=== PATIENT | male | born 1975 | race Caucasian/White ===

== ENCOUNTER 2024-08-13 10:00 | Inpatient (IN) | payer OTHER ==
[2024-08-13 10:37] VITALS: BMI 27.2
[2024-08-13] MEDS ORDERED: diazePAM 5 MG TABLET PO PRN (10:52)
[2024-08-13] MEDS ORDERED: guaiFENesin 600 MG TABLET.ER (FP) PO PRN (10:52)
[2024-08-13] MEDS ORDERED: BENZONATATE 200 MG CAPSULE PO PRN (10:52)
[2024-08-13] MEDS ORDERED: NICOTINE POLACRILEX 2 MG GUM BUC PRN (10:52)
[2024-08-13] MEDS ORDERED: BUPRENORPHINE HCL 150 MCG, BUPRENORPHINE HCL 75 MCG BC PRN (10:52)
[2024-08-13] MEDS ORDERED: BENZOCAINE/MENTHOL (CHLORASEPTIC ) LOZENGE MM PRN (10:52)
[2024-08-13] MEDS ORDERED: MAGNESIUM HYDROX 2400MG/30ML ORAL SUSPENSION 30 ML CUP PO PRN (10:52)
[2024-08-13] MEDS ORDERED: NALOXONE (NARCAN) HCL 4 MG/0.1 ML SPRAY NS PRN (10:52)
[2024-08-13] MEDS ORDERED: POLYETHYLENE GLYCOL (HEALTHYLAX) 3350 17 GM PACKET PO PRN (10:52)
[2024-08-13] MEDS ORDERED: DICYCLOMINE HCL 10 MG CAPSULE PO PRN (10:52)
[2024-08-13] MEDS ORDERED: NICOTINE POLACRILEX 2 MG LOZENGE BC PRN (10:52)
[2024-08-13] MEDS ORDERED: BISMUTH SUBSALICYLATE 524 MG/30 ML PO PRN (10:52)
[2024-08-13] MEDS ORDERED: ONDANSETRON *ODT* 4 MG TABLET SL PRN (10:52)
[2024-08-13] MEDS ORDERED: diazePAM 5 MG TABLET ONE (12:31)
[2024-08-13] MEDS ORDERED: BUPRENORPHINE HCL 150 MCG FILM BC ONE (12:32)
[2024-08-13] MEDS ORDERED: BUPRENORPHINE HCL 75 MCG FILM BC ONE (12:32)
[2024-08-13] MEDS ORDERED: cloNIDine HCL 0.1 MG TABLET ONE (12:33)
[2024-08-13] MEDS: BUPRENORPHINE HCL 150 MCG, BUPRENORPHINE HCL 75 MCG BC ONE (12:36)
[2024-08-13] MEDS: diazePAM 5 MG TABLET PO SCH (12:37)
[2024-08-13] MEDS: cloNIDine HCL 0.1 MG TABLET PO ONE (12:37)
[2024-08-13] MEDS: diazePAM 5 MG TABLET PO PRN (15:55)
[2024-08-13] MEDS: DARUNAVIR/COB/EMTRI/TENOF ALAF 1 EACH TABLET PO SCH (15:59)
[2024-08-13] MEDS: METHOCARBAMOL 500 MG TABLET PO PRN (17:34)
[2024-08-13] MEDS: cloNIDine HCL 0.1 MG TABLET PO PRN (17:35)
[2024-08-13] MEDS: MELATONIN 5 MG TABLETS PO SCH (22:24)
[2024-08-13] MEDS: THIAMINE 100 MG TABLET PO SCH (22:24)
[2024-08-13] MEDS: MIRTAZAPINE 15 MG TABLET (FP) PO SCH (22:24)
[2024-08-14] MEDS ORDERED: BUPRENORPHINE HCL 150 MCG, BUPRENORPHINE HCL 75 MCG BC PRN
[2024-08-14] MEDS: hydrOXYzine PAMOATE 25 MG CAPSULE (FP) PO PRN (00:56)
[2024-08-14] MEDS: IBUPROFEN 400 MG TABLET (FP) PO PRN (00:57)
[2024-08-14] MEDS: BUPRENORPHINE HCL 150 MCG, BUPRENORPHINE HCL 75 MCG BC SCH (05:34)
[2024-08-14] MEDS ORDERED: ALBUTEROL SO4 HFA INHALER IH PRN (07:39)
[2024-08-14] MEDS: PRENATAL VITAMINS W/ FOLIC ACID TABLET (FP) PO SCH (09:57)
[2024-08-14] MEDS: NICOTINE 21 MG/24 HOURS TOPICAL PATCH TD SCH (09:57)
[2024-08-14 11:31] LABS: POTASSIUM 4.1 mmol/L (3.5-5.1)
[2024-08-14 11:37] LABS: HEMATOCRIT 36.2 % (35.4-49); HEMOGLOBIN 12.1 GM/dL (11.7-16.9); MCH 26.9 pg (25.7-33.7); MCHC 33.5 g/dl (32.0-35.9); MEAN CELL VOLUME 80.3 fl (80-96); MEAN PLT VOLUME 8.6 fl (7.5-11.1); PLATELET COUNT 119 10^3/uL (134-434); RBC 4.51 M/mm3 (4.00-5.60); RDW 15.1 % (11.9-15.9)
[2024-08-14 11:46] LABS: CALCIUM 9.1 mg/dL (8.5-10.1)
[2024-08-14 11:47] LABS: ALBUMIN 3.2 g/dl (3.4-5.0); BLOOD UREA NITROGEN 13.8 mg/dL (7-18); WHITE BLOOD COUNT 1.6 K/mm3 (4.0-10.0)
[2024-08-14 11:50] LABS: CREATININE 0.8 mg/dL (0.55-1.3)
[2024-08-14 11:51] LABS: BILIRUBIN,TOTAL 0.6 mg/dL (0.2-1); TOT PROT 6.9 g/dl (6.4-8.2)
[2024-08-14] MEDS: LOPERAMIDE HCL 2 MG CAPSULE PO PRN (15:12)
[2024-08-14] MEDS: ACETAMINOPHEN 325 MG TABLET (FP) PO PRN (15:12)
[2024-08-14] MEDS: IBUPROFEN 600 MG TABLET (FP) PO PRN (23:32)
[2024-08-15] MEDS: BUPRENORPHINE HCL 450 MCG FILM BC SCH (05:20)
[2024-08-15] MEDS: diazePAM 5 MG TABLET PO SCH (05:20)
[2024-08-15] MEDS: MAG HYDROX/AL HYDROX/SIMETH 30 ML UNIT-DOSE CUP PO PRN (09:56)
[2024-08-16] MEDS: BUPRENORPHINE/NALOXONE 4 MG/1 MG FILM PACKET SL SCH (05:55)
[2024-08-16] MEDS: diazePAM 5 MG TABLET PO SCH (05:55)
[2024-08-17] MEDS: BUPRENORPHINE/NALOXONE 8 MG/2 MG FILM PACKET SL ONE (06:01)
[2024-08-17] MEDS: diazePAM 5 MG TABLET PO ONE (06:01)
[2024-08-17 08:52] VITALS: BP 136/85; PULSE 79; RESP 16; TEMP 97.3
[2024-08-17] MEDS: NALOXONE (NYS OPIOID OVERDOSE PROGRAM) 4 MG/0.1 ML SPRAY NS SCH (10:52)
== END 2024-08-17 10:45 | disposition other institution (70) | DRG 773 ==
LOC: YASAS 10:00 → Y3N 12:31
PROVIDERS: ADMIT Allergy & Immunology; ATTEND Allergy & Immunology
PROC: HZ2ZZZZ Detoxification Services for Substance Abuse Treatment (ICD-10-PCS; principal; 2024-08-13)
DX: F11.23 Opioid dependence with withdrawal (principal); F10.230 Alcohol dependence with withdrawal, uncomplicated; F14.20 Cocaine dependence, uncomplicated; F17.210 Nicotine dependence, cigarettes, uncomplicated; F31.9 Bipolar disorder, unspecified; F41.9 Anxiety disorder, unspecified; Z21 Asymptomatic human immunodeficiency virus [HIV] infection status; Z86.19 Personal history of other infectious and parasitic diseases; Z88.8 Allergy status to other drugs, medicaments and biological substances; Z79.899 Other long term (current) drug therapy
CPT/HCPCS: 36415; 80053; 80305; 80307; 85027; 86359; 86360; 86780; 93005; 93010

== ENCOUNTER 2025-01-12 14:37 | Inpatient (IN) | payer OTHER ==
[2025-01-12 14:56] VITALS: BMI 28.3
[2025-01-12] MEDS ORDERED: DICYCLOMINE HCL 10 MG CAPSULE PO PRN (15:18)
[2025-01-12] MEDS ORDERED: BENZONATATE 200 MG CAPSULE PO PRN (15:18)
[2025-01-12] MEDS ORDERED: ONDANSETRON *ODT* 4 MG TABLET SL PRN (15:18)
[2025-01-12] MEDS ORDERED: LOPERAMIDE HCL 2 MG CAPSULE PO PRN (15:18)
[2025-01-12] MEDS ORDERED: IBUPROFEN 400 MG TABLET (FP) PO PRN (15:18)
[2025-01-12] MEDS ORDERED: NALOXONE (NARCAN) HCL 4 MG/0.1 ML SPRAY NS PRN (15:18)
[2025-01-12] MEDS ORDERED: BISMUTH SUBSALICYLATE 524 MG/30 ML PO PRN (15:18)
[2025-01-12] MEDS ORDERED: MAGNESIUM HYDROX 2400MG/30ML ORAL SUSPENSION 30 ML CUP PO PRN (15:18)
[2025-01-12] MEDS ORDERED: P-EPHED 60MG/TRIPROLIDI 2.5MG TABLET PO PRN (15:18)
[2025-01-12] MEDS ORDERED: NICOTINE POLACRILEX 2 MG GUM BUC PRN (15:18)
[2025-01-12] MEDS ORDERED: guaiFENesin 600 MG TABLET.ER (FP) PO PRN (15:18)
[2025-01-12] MEDS ORDERED: NICOTINE POLACRILEX 2 MG LOZENGE BC PRN (15:18)
[2025-01-12] MEDS ORDERED: POLYETHYLENE GLYCOL (HEALTHYLAX) 3350 17 GM PACKET PO PRN (15:18)
[2025-01-12] MEDS ORDERED: BENZOCAINE/MENTHOL (CHLORASEPTIC ) LOZENGE MM PRN (15:18)
[2025-01-12] MEDS ORDERED: ACETAMINOPHEN 325 MG TABLET (FP) PO PRN (15:18)
[2025-01-12] MEDS ORDERED: methaDONE HCL 10 MG TABLET (FOR DETOX USE ONLY) ONE (15:36)
[2025-01-12] MEDS: methaDONE HCL 10 MG TABLET (FOR DETOX USE ONLY) PO ONE (15:39)
[2025-01-12] MEDS: diazePAM 5 MG TABLET PO ONE (15:57)
[2025-01-12] MEDS: METHOCARBAMOL 500 MG TABLET PO PRN (18:48)
[2025-01-12] MEDS: cloNIDine HCL 0.1 MG TABLET PO PRN (18:51)
[2025-01-12] MEDS: DARUNAVIR/COB/EMTRI/TENOF ALAF 1 EACH TABLET PO SCH ×2 (19:55→22:42)
[2025-01-12] MEDS: MELATONIN 5 MG TABLETS PO SCH (22:45)
[2025-01-12] MEDS: THIAMINE 100 MG TABLET PO SCH (22:45)
[2025-01-12] MEDS: diazePAM 5 MG TABLET PO PRN (22:47)
[2025-01-13 09:21] LABS: HEMATOCRIT 34.1 % (40.1-51.0); HEMOGLOBIN 11.1 g/dL (13.7-17.5); MCHC 32.6 g/dl (32.3-36.5); MEAN CELL VOLUME 80.6 fl (79.0-92.2); MEAN PLT VOLUME 10.2 fl (9.4-12.4); PLATELET COUNT 105 x10^3/uL (163-337); RDW 13.8 % (12.1-15.9)
[2025-01-13 09:59] LABS: CHLORIDE 106 mmol/L (98-107); POTASSIUM 3.4 mmol/L (3.5-5.1); SODIUM 141 mmol/L (136-145)
[2025-01-13] MEDS ORDERED: PATIENT'S OWN MEDICATION (NON-FORMULARY) (Darunavir/Cob/Emtri/Tenof Alaf 1 EACH Tablet) PO SCH (10:00)
[2025-01-13 10:01] LABS: ANION GAP 7 mmol/L (4-13); CO2 28 mmol/L (21-32); GLUCOSE,RANDOM 95 mg/dL (74-106)
[2025-01-13 10:02] LABS: ALBUMIN 2.8 g/dl (3.4-5.0); BLOOD UREA NITROGEN 12.9 mg/dL (7-18)
[2025-01-13 10:04] LABS: CREATININE 0.8 mg/dL (0.55-1.3)
[2025-01-13 10:05] LABS: SGOT/AST 19 U/L (15-37); SGPT/ALT 21 U/L (13-61)
[2025-01-13 10:06] LABS: BILIRUBIN,TOTAL 0.3 mg/dL (0.2-1)
[2025-01-13 10:07] LABS: ALK PHOS 106 U/L (45-117)
[2025-01-13] MEDS: PRENATAL VITAMINS W/ FOLIC ACID TABLET (FP) PO SCH (10:09)
[2025-01-13] MEDS: methaDONE HCL 10 MG TABLET (FOR DETOX USE ONLY) PO ONE (10:10)
[2025-01-13] MEDS: BUPRENORPHINE/NALOXONE 0.5 MG/0.125 MG FILM SL SCH (10:10)
[2025-01-13] MEDS: POTASSIUM CHLORIDE ORAL LIQUID 20 MEQ/15 ML PO ONE (14:35)
[2025-01-13] MEDS: MIRTAZAPINE 15 MG TABLET (FP) PO SCH (22:35)
[2025-01-14] MEDS ORDERED: BUPRENORPHINE/NALOXONE 2 MG/0.5 MG FILM PACKET SL SCH (10:00)
[2025-01-14] MEDS: IBUPROFEN 600 MG TABLET (FP) PO PRN (19:54)
[2025-01-15] MEDS: methaDONE HCL 10 MG TABLET (FOR DETOX USE ONLY) PO ONE (09:32)
[2025-01-15] MEDS ORDERED: BUPRENORPHINE/NALOXONE 4 MG/1 MG FILM PACKET SL SCH (10:00)
[2025-01-16] MEDS ORDERED: BUPRENORPHINE/NALOXONE 8 MG/2 MG FILM PACKET SL SCH (10:00)
[2025-01-16] MEDS: MAG HYDROX/AL HYDROX/SIMETH 30 ML UNIT-DOSE CUP PO PRN (11:37)
[2025-01-17 06:43] VITALS: RESP 16
[2025-01-17] MEDS: methaDONE HCL 10 MG TABLET (FOR DETOX USE ONLY) PO ONE (09:36)
[2025-01-17] MEDS: BUPRENORPHINE/NALOXONE 4 MG/1 MG FILM PACKET SL SCH (09:51)
[2025-01-17] MEDS ORDERED: BUPRENORPHINE/NALOXONE 8 MG/2 MG FILM PACKET SL SCH (10:00)
[2025-01-17] MEDS: hydrOXYzine PAMOATE 50 MG CAPSULE (FP) PO PRN (11:41)
[2025-01-17] MEDS: cloNIDine HCL 0.1 MG TABLET PO ONE (12:54)
[2025-01-17 13:00] VITALS: BP 136/90; PULSE 70; TEMP 98.2
[2025-01-17] MEDS: cloNIDine HCL 0.1 MG TABLET PO SCH (13:31)
[2025-01-18] MEDS ORDERED: BUPRENORPHINE/NALOXONE 8 MG/2 MG FILM PACKET SL SCH (10:00)
== END 2025-01-17 14:24 | disposition home or self-care (01) | DRG 773 ==
LOC: YASAS 14:37 → Y6N 15:35
PROVIDERS: ADMIT Neuromusculoskeletal Medicine & OMM; ATTEND Family Medicine
PROC: HZ2ZZZZ Detoxification Services for Substance Abuse Treatment (ICD-10-PCS; principal; 2025-01-13)
DX: F11.23 Opioid dependence with withdrawal (principal); F10.20 Alcohol dependence, uncomplicated; F14.20 Cocaine dependence, uncomplicated; F15.10 Other stimulant abuse, uncomplicated; F17.210 Nicotine dependence, cigarettes, uncomplicated; F19.282 Other psychoactive substance dependence with psychoactive substance-induced sleep disorder; F31.9 Bipolar disorder, unspecified; Z21 Asymptomatic human immunodeficiency virus [HIV] infection status; D72.819 Decreased white blood cell count, unspecified; E87.6 Hypokalemia; Z79.899 Other long term (current) drug therapy; Z59.01 Sheltered homelessness; Z88.8 Allergy status to other drugs, medicaments and biological substances
CPT/HCPCS: 36415; 80053; 80305; 80307; 84132; 85027

== ENCOUNTER 2025-01-14 12:03 | Emergency (ER) | payer OTHER ==
[2025-01-14 12:17] VITALS: RESP 18; BMI 27.1
[2025-01-14 12:24] VITALS: TEMP 97.8
[2025-01-14 13:43] LABS: HEMATOCRIT 46.6 % (40.1-51.0); MCHC 32.2 g/dl (32.3-36.5); MEAN CELL VOLUME 82.5 fl (79.0-92.2); PLATELET COUNT 141 x10^3/uL (163-337)
[2025-01-14 14:01] LABS: POTASSIUM 4.3 mmol/L (3.5-5.1)
[2025-01-14 14:04] LABS: BLOOD UREA NITROGEN 16.5 mg/dL (7-18); CALCIUM 9.4 mg/dL (8.5-10.1); MAGNESIUM 2.1 mg/dL (1.8-2.4)
[2025-01-14] MEDS ORDERED: ACETAMINOPHEN INJECTION 100 ML ONE (14:06)
[2025-01-14] MEDS ORDERED: FAMOTIDINE 20 MG/50 ML IVPB 20 MG/50 ML MG IVPB ONE (14:06)
[2025-01-14 14:07] LABS: CREATININE 0.9 mg/dL (0.55-1.3)
[2025-01-14 14:09] LABS: ALBUMIN 3.5 g/dl (3.4-5.0); BILIRUBIN,TOTAL 0.4 mg/dL (0.2-1); TOT PROT 7.9 g/dl (6.4-8.2)
[2025-01-14] MEDS: FAMOTIDINE 20 MG/50 ML IVPB 20 MG/50 ML MG IVPB ONE (14:13)
[2025-01-14] MEDS: LACTATED RINGERS SOLUTION 1000 ML INFUS.BAG IV ONE (14:13)
[2025-01-14] MEDS: ACETAMINOPHEN 1000 MG/100 ML BAG IVPB ONE (14:13)
[2025-01-14 14:50] LABS: ABSOLUTE IMMATURE GRANULOCYTES 0.03 x10^3/uL (0.0-0.031); BASOPHILS # 0.01 x10^3/uL (0.01-0.08); EOSINOPHIL % 0.5 % (0.8-7.0); EOSINOPHILS # 0.02 x10^3/uL (0.04-0.54); HEMATOCRIT 41.1 % (40.1-51.0); HEMOGLOBIN 13.1 g/dL (13.7-17.5); MCHC 31.9 g/dl (32.3-36.5); MEAN CELL VOLUME 82.5 fl (79.0-92.2); MEAN PLT VOLUME 9.4 fl (9.4-12.4); MONOCYTE % 4.8 % (5.3-12.2); PLATELET COUNT 121 x10^3/uL (163-337); RDW 13.9 % (12.1-15.9)
[2025-01-14 14:51] LABS: PH,URINE 5.5 (5.0-8.0); URINE APPEARANCE CLEAR; URINE BILIRUBIN NEGATIVE (NEGATIVE); URINE COLOR YELLOW; URINE GLUCOSE (UA) NEGATIVE (NEGATIVE); URINE KETONE NEGATIVE (NEGATIVE); URINE LEUK ESTERASE NEGATIVE (NEGATIVE); URINE NITRITE NEGATIVE (NEGATIVE); URINE PROTEIN NEGATIVE (NEGATIVE); URINE UROBILINOGEN 0.2 mg/dL (0.2-1.0)
[2025-01-14 15:12] LABS: POTASSIUM 4.3 mmol/L (3.5-5.1)
[2025-01-14 15:14] LABS: BLOOD UREA NITROGEN 15.9 mg/dL (7-18); CALCIUM 8.8 mg/dL (8.5-10.1)
[2025-01-14 15:18] LABS: CREATININE 0.8 mg/dL (0.55-1.3)
[2025-01-14 15:19] LABS: BILIRUBIN,TOTAL 0.3 mg/dL (0.2-1); TOT PROT 6.9 g/dl (6.4-8.2)
[2025-01-14 16:19] VITALS: BP 112/59; PULSE 65
== END 2025-01-14 17:15 | disposition home or self-care (01) ==
LOC: JER 12:03
PROC: 3E033GC Introduction of Other Therapeutic Substance into Peripheral Vein, Percutaneous Approach (ICD-10-PCS; principal; 2025-01-14)
PROC: 3E033NZ Introduction of Analgesics, Hypnotics, Sedatives into Peripheral Vein, Percutaneous Approach (ICD-10-PCS; 2025-01-14)
DX: D72.819 Decreased white blood cell count, unspecified (principal); R10.84 Generalized abdominal pain; R19.7 Diarrhea, unspecified; F11.20 Opioid dependence, uncomplicated
CPT/HCPCS: 0241U-QW; 36415; 80053; 81003; 83690; 83735; 85025; 87086; 99284-25